=== PATIENT | male | born 1950 | race Caucasian/White ===

== ENCOUNTER 2016-11-30 00:58 | Emergency (ER) | payer OTHER ==
[2016-11-30] MEDS ORDERED: HYDROmorphone HCL CARPU-JECT 2 MG/1 ML DISP.SYRIN IVPUSH ONE (01:02)
[2016-11-30] MEDS ORDERED: SODIUM CHLORIDE 1,000 ML IV STA (01:02)
--- NOTE | 2016-11-30 01:09 | PDOC ---
History of Present Illness - General Chief Complaint: Pain, Acute Stated Complaint: ABDOMINAL PAIN SINCE 6 PM Time Seen by Provider: 11/30/16 01:01 History Source: Patient, Old Records Exam Limitations: No Limitations - History of Present Illness Initial Comments: 11/30/16 01:04 66 Y M DM, chronic neck pain on opiates. pte c/o abd pain. epigastric. radiating in band to back. vomited multiple time. no diarrhea. last bm yesterday but really hard. no fever. in ed, in nad but uncomfortable in pain. 11/30/16 02:40 ate buffalo wings and sausages yesterday. constipated for the last 5 days Past History - Past Medical History Allergies/Adverse Reactions: Allergies Allergy/AdvReac Type Severity Reaction Status Date / Time No Known Allergies Allergy Verified 11/30/16 01:00 Home Medications: Ambulatory Orders Glipizide/Metformin HCl [Glipizide-Metformin 5-500 mg] 1 each PO TID 04/24/14 Metoprolol Succinate [Toprol Xl] 25 mg PO DAILY 04/24/14 Oxycodone HCl [Roxicodone] 30 mg PO BID 04/24/14 Tamsulosin HCl [Flomax -] 0.4 mg PO BID 04/24/14 Aspirin [ASA -] 81 mg PO DAILY 05/25/16 Meclizine HCl [Antivert -] 25 mg PO TID PRN #20 tablet 05/25/16 [place]-3 Acid Ethyl Esters [Lovaza -] 1 gm PO DAILY 05/25/16 Diabetes: Yes HTN: Yes Hypercholesterolemia: Yes - Psycho/Social/Smoking Cessation Hx Anxiety: No Suicidal Ideation: No Smoking History: Current every day smoker Number of Cigarettes Smoked Daily: 3 Cigars Per Day: 7 'Breaking Loose' booklet given: 05/25/16 Hx Alcohol Use: No Drug/Substance Use Hx: No Substance Use Type: None Review of Systems - Review of Systems Able to Perform ROS?: Yes Is the patient limited Bulgarian proficient: No Constitutional: No: Symptoms Reported HEENTM: No: Symptoms Reported Respiratory: No: Symptoms reported Cardiac (ROS): No: Symptoms Reported ABD/GI: Yes: Symptoms Reported, See HPI : No: Symptoms Reported Musculoskeletal: No: Symptoms Reported Integumentary: No: Symptoms Reported Neurological: No: Symptoms reported All Other Systems: Reviewed and Negative *Physical Exam - Physical Exam General Appearance: Yes: Nourished, Appropriately Dressed. No: Apparent Distress HEENT: positive: Normal ENT Inspection Neck: positive: Supple Respiratory/Chest: positive: Lungs Clear, Normal Breath Sounds. negative: Respiratory Distress Cardiovascular: positive: Regular Rhythm, Regular Rate Gastrointestinal/Abdominal: positive: Normal Bowel Sounds, Tender (epigastric and b/l upper quads. no parada's. ), Soft. negative: Distended, Rebound Musculoskeletal: negative: CVA Tenderness Extremity: positive: Normal Capillary Refill, Normal Inspection, Normal Range of Motion Integumentary: positive: Normal Color. negative: Jaundice, Ecchymosis, Bruising Neurologic: positive: Fully Oriented, Alert, Normal Mood/Affect, Normal Response , Motor Strength 02/12 ED Treatment Course - LABORATORY CBC & Chemistry Diagram: 11/30/16 01:30 11/30/16 01:30 Progress Note - Progress Note Progress Note: H&P susp for pancreatitis pain control/ivf/labs/ reassess 2:40 am pain free. abd soft and non tender zofran and lactulose will see his pcp today *DC/Admit/Observation/Transfer Diagnosis at time of Disposition: Abdominal pain Qualifiers: Abdominal location: upper abdomen, unspecified Qualified Code(s): R10.10 - Upper abdominal pain, unspecified - Discharge Dispostion Disposition: HOME Condition at time of disposition: Improved - Referrals Referrals: Nicki Noonan MD [Primary Care Provider] - Call tomorrow - Patient Instructions Additional Instructions: TAKE MEDICATIONS PRESCRIBED PLENTY OF FLUIDS (WATER/GATORADE) BLAND DIET, ADVANCE TOLERATED EAT FREQUENT, SMALL MEALS THROUGHOUT THE DAY MAALOX, 30 ml 1/2 HOUR AFTER MEALS AND AT BED TIME RETURN IF FEVER, VOMITING, SEVERE PAIN CALL DR. NOONAN TODAY
[2016-11-30] MEDS ORDERED: HYDROmorphone HCL CARPU-JECT 2 MG/1 ML DISP.SYRIN ONE (01:10)
[2016-11-30 01:25] VITALS: TEMP 97.6; BMI 24.8
[2016-11-30 01:44] LABS: BASOPHIL 0.4 % (0-2.0); EOSINOPHIL 0.5 % (0-4.5); MCH 29.6 pg (25.7-33.7); MCHC 34.5 g/dl (32.0-35.9); MEAN CELL VOLUME 85.7 fl (80-96); MEAN PLT VOLUME 8.5 fl (7.5-11.1); NEUTROPHILS 76.9 % (42.8-82.8); PLATELET COUNT 111 K/MM3 (134-434); RDW 13.1 % (11.9-15.9); WHITE BLOOD COUNT 6.9 K/mm3 (4.0-10.0)
[2016-11-30 01:56] VITALS: BP 143/69; PULSE 83
[2016-11-30 02:06] LABS: ALBUMIN 3.9 g/dl (3.4-5.0); ANION GAP 15 (8-16); BILIRUBIN,TOTAL 0.9 mg/dL (0.2-1.0); CALCIUM 9.1 mg/dL (8.5-10.1); CO2 24 mmol/L (21-32); CREATININE 0.9 mg/dL (0.7-1.3); GLUCOSE,RANDOM 278 mg/dL (74-106); SGOT/AST 65 U/L (15-37); SGPT/ALT 110 U/L (12-78); TOT PROT 7.5 g/dl (6.4-8.2)
[2016-11-30 02:07] LABS: ALK PHOS 192 U/L (45-117)
[2016-11-30] MEDS ORDERED: ONDANSETRON 4 MG/2 ML VIAL IVPUSH ONE (02:11)
[2016-11-30] MEDS ORDERED: LACTULOSE 20 GM/30 ML UDC (FOR ORAL USE ONLY) PO ONE (02:11)
[2016-11-30] MEDS ORDERED: LACTULOSE 20 GM/30 ML UDC (FOR ORAL USE ONLY) ONE (02:12)
[2016-11-30] MEDS ORDERED: ONDANSETRON 4 MG/2 ML VIAL ONE (02:12)
== END 2016-11-30 02:46 | disposition home or self-care (01) ==
LOC: FER 00:58
PROC: 3E033NZ Introduction of Analgesics, Hypnotics, Sedatives into Peripheral Vein, Percutaneous Approach (ICD-10-PCS; principal; 2016-11-30)
PROC: 3E033GC Introduction of Other Therapeutic Substance into Peripheral Vein, Percutaneous Approach (ICD-10-PCS; 2016-11-30)
PROC: 3E0337Z Introduction of Electrolytic and Water Balance Substance into Peripheral Vein, Percutaneous Approach (ICD-10-PCS; 2016-11-30)
DX: R10.10 Upper abdominal pain, unspecified (principal); E11.9 Type 2 diabetes mellitus without complications; I10 Essential (primary) hypertension; E78.00 Pure hypercholesterolemia, unspecified; F17.210 Nicotine dependence, cigarettes, uncomplicated
CPT/HCPCS: 36415; 80053; 83690; 85025; 99281-25

== ENCOUNTER 2016-12-05 18:20 | Inpatient (IN) | payer OTHER ==
--- NOTE | 2016-12-05 18:26 | PDOC ---
History of Present Illness <Juan Gupta - Last Filed: 12/05/16 18:37> - General History Source: Patient, Old Records Exam Limitations: No Limitations - History of Present Illness Initial Comments: 12/05/16 18:50 The patient is a 66 year old male with past medical history of hypertension, hyperlipidemia, type 2 diabetes, cigarette smoking, chronic neck pain (on chronic opiates),who was seen on 11/30/16 for diffuse abdominal pain and constipation and now returns with same symptoms with additional complaints of dizziness, weakness, and high blood sugar (taken at home, in 300's). The patient was seen in the ED last Wednesday night, where he was given Lactulose and discharged home without any prescriptions. He reports taking an enema on Wednesday , and producing two small bowel movements since the prior visit (one on and one today) both which were nonbloody and non-melanous. He rates his pain 8/10 and reports feeling bloated. He also reports a loss of appetite, and denies nausea or vomiting since his prior visit. The patient denies any recent illness, fever, chills, cough, shortness of breath, cough, or chest pain. <Kathy Marks - Last Filed: 12/05/16 21:19> - General Chief Complaint: Lightheaded Stated Complaint: DIZZY,WEAK Time Seen by Provider: 12/05/16 18:22 Past History - Past Medical History Diabetes: Yes HTN: Yes Hypercholesterolemia: Yes - Psycho/Social/Smoking Cessation Hx Anxiety: No Suicidal Ideation: No Smoking History: Current every day smoker Have you smoked in the past 12 months: Yes Number of Cigarettes Smoked Daily: 3 Cigars Per Day: 7 'Breaking Loose' booklet given: 05/25/16 Hx Alcohol Use: No Drug/Substance Use Hx: No Substance Use Type: None <Juan Gupta - Last Filed: 12/05/16 18:37> <Kathy Marks - Last Filed: 12/05/16 21:19> - Past Medical History Allergies/Adverse Reactions: Allergies Allergy/AdvReac Type Severity Reaction Status Date / Time No Known Allergies Allergy Verified 12/05/16 18:21 Home Medications: Ambulatory Orders Glipizide/Metformin HCl [Glipizide-Metformin 5-500 mg] 1 each PO TID 04/24/14 Metoprolol Succinate [Toprol Xl] 25 mg PO DAILY 04/24/14 Oxycodone HCl [Roxicodone] 30 mg PO BID 04/24/14 Tamsulosin HCl [Flomax -] 0.4 mg PO BID 04/24/14 Aspirin [ASA -] 81 mg PO DAILY 05/25/16 Meclizine HCl [Antivert -] 25 mg PO TID PRN #20 tablet 05/25/16 [place]-3 Acid Ethyl Esters [Lovaza -] 1 gm PO DAILY 05/25/16 Review of Systems - Review of Systems Able to Perform ROS?: Yes Comments:: 12/05/16 18:50 CONSTITUTIONAL: Present: loss of appetite, weakness Absent: fever, chills, diaphoresis, malaise HEENT: Absent: rhinorrhea, nasal congestion, throat pain, throat swelling, difficulty swallowing, mouth swelling, ear pain, eye pain, visual Changes CARDIOVASCULAR: Absent: chest pain, syncope, palpitations, irregular heart rate, lightheadedness , peripheral edema RESPIRATORY: Absent: cough, shortness of breath, dyspnea with exertion, orthopnea, wheezing, stridor, hemoptysis GASTROINTESTINAL: Present: abdominal pain, distention Absent: nausea, vomiting, diarrhea, constipation, melena, hematochezia GENITOURINARY: Absent: dysuria, frequency, urgency, hesitancy, hematuria, flank pain, genital pain MUSCULOSKELETAL: Absent: myalgia, arthralgia, joint swelling SKIN: Absent: rash, itching, pallor HEMATOLOGIC/IMMUNOLOGIC: Absent: easy bleeding, easy bruising, lymphadenopathy, frequent infections ENDOCRINE: Absent: unexplained weight gain, unexplained weight loss, heat intolerance, cold intolerance NEUROLOGIC: Absent: headache, focal weakness or paresthesias, dizziness, unsteady gait, seizure, mental status changes, bladder or bowel incontinence PSYCHIATRIC: Absent: anxiety, depression, suicidal or homicidal ideation, hallucinations. All Other Systems: Reviewed and Negative <Kathy Marks - Last Filed: 12/05/16 21:19> *Physical Exam - Vital Signs Last Vital Signs Temp Pulse Resp BP Pulse Ox 98.2 F 83 20 150/80 96 12/05/16 18:21 12/05/16 18:21 12/05/16 18:21 12/05/16 18:21 12/05/16 18:21 - Physical Exam Comments: 12/05/16 18:53 GENERAL: Well developed, well nourished. Awake and alert. No acute distress. HEENT: Dry mucous membranes. Normocephalic, atraumatic. PERRLA, EOMI. No conjunctival pallor. Sclera are non-icteric. Oropharynx is clear. NECK: Supple. Full ROM. No JVD. Carotid pulses 2+ and symmetric, without bruits. No thyromegaly. No lymphadenopathy. CARDIOVASCULAR: Regular rate and rhythm. No murmurs, rubs, or gallops. Distal pulses are 2+ and symmetric. PULMONARY: No evidence of respiratory distress. Lungs clear to auscultation bilaterally. No wheezing, rales or rhonchi. ABDOMINAL: Mild tenderness upon deep palpation, mildly distended. No rebound or guarding. No organomegaly. Normoactive bowel sounds. MUSCULOSKELETAL Normal range of motion at all joints. No bony deformities or tenderness. No CVA tenderness. EXTREMITIES: No cyanosis. No clubbing. No edema. No calf tenderness. SKIN: Warm and dry. Normal capillary refill. No rashes. No jaundice. NEUROLOGICAL: Alert, awake, appropriate. Cranial nerves 2-12 intact. No deficits to light touch and temperature in face, upper extremities and lower extremities. No motor deficits in the in face, upper extremities and lower extremities. Normoreflexic in the upper and lower extremities. Normal speech. Toes are down-going bilaterally. Gait is normal without ataxia. PSYCHIATRIC: Cooperative. Good eye contact. Appropriate mood and affect. <Kathy Marks - Last Filed: 12/05/16 21:19> ED Treatment Course - LABORATORY CBC & Chemistry Diagram: 12/05/16 18:48 12/05/16 18:48 - RADIOLOGY Radiograph Interpretation: 12/05/16 21:18 EXAM: CT abdomen and pelvis with intravenous and oral contrast FINDINGS: There are multiple small stones within a moderately distended gallbladder with thickening of the gallbladder wall and pericholecystic edema compatible with acute cholecystitis Small amount of perihepatic ascites and small amount of ascites in the pelvis No loculated fluid collections or intra-abdominal free air There are fatty changes of liver with subtle contour nodularity concerning for cirrhosis. The spleen is enlarged measuring 15 cm in craniocaudal dimension. There are enlarged celiac axis, periportal and portacaval lymph nodes measuring up to 1.3 cm in short axis which are nonspecific and possibly reactive although malignancy cannot be excluded There is no bowel obstruction or distention Mild circumferential thickening of the terminal ileum and mild circumferential thickening throughout the colon predominantly sigmoid colon compatible with nonspecific ileocolitis Read by: Samuel Goldman MD <Kathy Marks - Last Filed: 12/05/16 21:19> Medical Decision Making - Medical Decision Making 12/05/16 18:37 The patient is well-appearing and in no acute distress He appears mildly volume deplete He has signs and symptoms potentially consistent with small bowel obstruction, likely partial Will obtain labs Will obtain CT of the abdomen and pelvis with oral and IV contrast to rule out partial small bowel obstruction Case discussed in detail with oncoming Emergency Physician including history, physical exam and ancillary studies. Oncoming Emergency Physician has assumed care for the patient and will complete the evaluation and treatment. <Juan Gupta - Last Filed: 12/05/16 18:37> *DC/Admit/Observation/Transfer <Juan Gupta - Last Filed: 12/05/16 18:37> - Attestations Scribe Attestion: 12/05/16 18:54 Documentation prepared by Kathy Marks, acting as medical education coordinator for Juan Gupta MD. <Kathy Marks - Last Filed: 12/05/16 21:19> Diagnosis at time of Disposition: Abdominal pain, Acute cholecystitis
[2016-12-05] MEDS ORDERED: SODIUM CHLORIDE 500 ML IV STA (18:27)
[2016-12-05 19:01] LABS: BASOPHIL 2.4 % (0-2.0); EOSINOPHIL 0.6 % (0-4.5); MCH 30.4 pg (25.7-33.7); MCHC 35.5 g/dl (32.0-35.9); MEAN CELL VOLUME 85.5 fl (80-96); MEAN PLT VOLUME 7.8 fl (7.5-11.1); NEUTROPHILS 76.7 % (42.8-82.8); PLATELET COUNT 204 K/MM3 (134-434); RDW 11.8 % (11.9-15.9); WHITE BLOOD COUNT 15.4 K/mm3 (4.0-10.0)
[2016-12-05 19:17] LABS: ALK PHOS 130 U/L (32-92); ANION GAP 10 (8-16); CALCIUM 8.5 mg/dl (8.4-10.2); CO2 26 mmol/L (22-28); CREATININE 0.8 mg/dl (0.6-1.3); GLUCOSE,RANDOM 175 mg/dl (74-106); SGOT/AST 46 U/L (10-42); SGPT/ALT 45 U/L (10-40); TOT PROT 6.4 g/dl (6.4-8.3)
[2016-12-05] MEDS: SODIUM CHLORIDE 1,000 ML IV SCH (19:38)
--- NOTE | 2016-12-05 19:38 | PDOC ---
*Physical Exam - Vital Signs Last Vital Signs Temp Pulse Resp BP Pulse Ox 98.2 F 83 20 150/80 96 12/05/16 18:21 12/05/16 18:21 12/05/16 18:21 12/05/16 18:21 12/05/16 18:21 12/05/16 21:09 Fish And Wildlife Warden: ([email or web address]) Begin of Report Content Referring Physician: Juan Gupta Patient Name: Ye Rodríguez THIS IS A PRELIMINARY REPORT FROM [facility] EXAM: CT abdomen and pelvis with intravenous and oral contrast IMAGES: [id number] EXAM DATE AND TIME: 2016-12-05 19:44:19.0 REASON FOR EXAM: Abdominal pain COMPARISON: None. FINDINGS: There are multiple small stones within a moderately distended gallbladder with thickening of the gallbladder wall and pericholecystic edema compatible with acute cholecystitis Small amount of perihepatic ascites and small amount of ascites in the pelvis No loculated fluid collections or intra-abdominal free air There are fatty changes of liver with subtle contour nodularity concerning for cirrhosis. The spleen is enlarged measuring 15 cm in craniocaudal dimension. There are enlarged celiac axis, periportal and portacaval lymph nodes measuring up to 1.3 cm in short axis which are nonspecific and possibly reactive although malignancy cannot be excluded There is no bowel obstruction or distention Mild circumferential thickening of the terminal ileum and mild circumferential thickening throughout the colon predominantly sigmoid colon compatible with nonspecific ileocolitis THIS DOCUMENT HAS BEEN ELECTRONICALLY SIGNED Samuel Goldman MD 12/05/2016 21:01 SARAH Rolle Please call Imaging Design Editor [phone] with questions. <Reta Carrillo I - Last Filed: 12/05/16 21:20> - Vital Signs Last Vital Signs Temp Pulse Resp BP Pulse Ox 98.2 F 83 20 150/80 96 12/05/16 18:21 12/05/16 18:21 12/05/16 18:21 12/05/16 18:21 12/05/16 18:21 <Kathy Marks - Last Filed: 12/05/16 21:25> ED Treatment Course - LABORATORY CBC & Chemistry Diagram: 12/05/16 18:48 12/05/16 18:48 - ADDITIONAL ORDERS Additional order review: Laboratory Results 12/05/16 18:48 Sodium 131 L Potassium 3.7 Chloride 95 L Carbon Dioxide 26 Anion Gap 10 BUN 14 Creatinine 0.8 Creat Clearance w eGFR > 60 Random Glucose 175 H D Calcium 8.5 Total Bilirubin 1.0 D AST 46 H ALT 45 H D Alkaline Phosphatase 130 H Total Protein 6.4 Albumin 3.0 L D Lipase 34 12/05/16 18:48 RBC 5.27 MCV 85.5 MCHC 35.5 RDW 11.8 L MPV 7.8 Neutrophils % 76.7 Lymphocytes % 13.9 Monocytes % 6.4 Eosinophils % 0.6 Basophils % 2.4 H - Medications Given in the ED: ED Medications Discontinued Medications Generic Name Dose Route Start Last Admin Trade Name Freq PRN Reason Stop Dose Admin Sodium Chloride 500 mls @ 500 mls/hr 12/05/16 18:27 12/05/16 18:48 Normal Saline - IV 12/05/16 19:26 500 mls/hr ASDIR STA Administration <Reta Carrillo I - Last Filed: 12/05/16 21:20> - LABORATORY CBC & Chemistry Diagram: 12/05/16 18:48 12/05/16 18:48 - ADDITIONAL ORDERS Additional order review: Laboratory Results 12/05/16 12/05/16 12/05/16 19:50 18:48 18:48 Sodium 131 L Potassium 3.7 Chloride 95 L Carbon Dioxide 26 Anion Gap 10 BUN 14 Creatinine 0.8 Creat Clearance w eGFR > 60 Random Glucose 175 H D Lactic Acid 1.642 Calcium 8.5 Total Bilirubin 1.0 D AST 46 H ALT 45 H D Alkaline Phosphatase 130 H C-Reactive Protein Total Protein 6.4 Albumin 3.0 L D Lipase 34 Urine Color Yellow Urine Appearance Clear Urine pH 7.0 Ur Specific [place] 1.010 Urine Protein Negative Urine Glucose (UA) Trace Urine Ketones Negative Urine Blood Negative Urine Nitrite Negative Urine Bilirubin Negative Urine Urobilinogen 1.0 e.u/dl Ur Leukocyte Esterase Negative 12/05/16 18:48 Sodium Potassium Chloride Carbon Dioxide Anion Gap BUN Creatinine Creat Clearance w eGFR Random Glucose Lactic Acid Calcium Total Bilirubin AST ALT Alkaline Phosphatase C-Reactive Protein 11.7 H Total Protein Albumin Lipase Urine Color Urine Appearance Urine pH Ur Specific [place] Urine Protein Urine Glucose (UA) Urine Ketones Urine Blood Urine Nitrite Urine Bilirubin Urine Urobilinogen Ur Leukocyte Esterase 12/05/16 18:48 RBC 5.27 MCV 85.5 MCHC 35.5 RDW 11.8 L MPV 7.8 Neutrophils % 76.7 Lymphocytes % 13.9 Monocytes % 6.4 Eosinophils % 0.6 Basophils % 2.4 H - Medications Given in the ED: ED Medications Discontinued Medications Generic Name Dose Route Start Last Admin Trade Name Pallavi PRN Reason Stop Dose Admin Sodium Chloride 500 mls @ 500 mls/hr 12/05/16 18:27 12/05/16 18:48 Normal Saline - IV 12/05/16 19:26 500 mls/hr ASDIR STA Administration <Kathy Marks - Last Filed: 12/05/16 21:25> Progress Note - Progress Note Progress Note: Care of the patient was transferred to nd from Dr. Gupta at 7 PM. Patient is a 66-year-old male who has opioid-induced chronic constipation. Patient was here 5 days ago with abdominal pain and constipation. Patient has only had 2 very small bowel movements in the last 5 days and now comes back with more pain and some abdominal distention. Patient is undergoing a workup for mechanical bowel obstruction secondary to his severe constipation. Patient has a CT scan pending. Patient's lab work is also pending. 21:10 CAT scan shows acute cholecystitis Patient has a white count but no left shift. Patient's liver enzymes are elevated including his alkaline phosphatase Patient will be admitted to an inpatient bed for acute cholecystitis and removal of his gallbladder. Admission discussed with Dr. Khadijah Thrasher who will admit patient to an inpatient bed. Patient given Zosyn. <Reta Carrillo I - Last Filed: 12/05/16 21:20> Medical Decision Making - Medical Decision Making 12/05/16 21:24 Phone call placed to Dr. Khadijah Thrasher at 21:15. Call was returned at 21:19 and case was discussed. Phone call placed to [facility] at 21:24 and call was connected immediately. Case was discussed. <Kathy Marks - Last Filed: 12/05/16 21:25> *DC/Admit/Observation/Transfer - Discharge Dispostion Admit: Yes <Reta Carrillo I - Last Filed: 12/05/16 21:20> - Attestations Scribe Attestion: 12/05/16 21:25 Documentation prepared by Kathy Marks, acting as medical apparatus model maker for Reta Carrillo MD. <Kathy Marks - Last Filed: 12/05/16 21:25> Diagnosis at time of Disposition: Abdominal pain, Acute cholecystitis
[2016-12-05 20:08] LABS: URINE APPEARANCE Clear; URINE BILIRUBIN Negative (NEGATIVE); URINE BLOOD Negative (NEGATIVE); URINE COLOR YELLOW; URINE GLUCOSE (UA) Trace (NEGATIVE); URINE KETONE Negative (NEGATIVE); URINE LEUK ESTERASE Negative (NEGATIVE); URINE NITRITE Negative (NEGATIVE); URINE PROTEIN Negative (NEGATIVE); URINE UROBILINOGEN 1.0 E.U/dl (0.2-1.0)
[2016-12-05] MEDS ORDERED: ACETAMINOPHEN 1000 MG/100 ML VIAL (NON FORMULARY) IVPB ONE (21:00)
[2016-12-05] MEDS ORDERED: ACETAMINOPHEN INJECTION 100 ML IVPB ONE (21:15)
[2016-12-05] MEDS ORDERED: PIPERACILLIN/TAZOB 3.375 GM 3.375 GM in DEXTROSE 5%-WATER - 50 ML IVPB ONE (21:20)
[2016-12-05] MEDS ORDERED: PIPERACILLIN/TAZOBACTAM 3.375 GM VIAL IVPB ONE (21:25)
[2016-12-05 23:44] VITALS: BMI 23.6
[2016-12-06] MEDS: D5-1/2NS+20 MEQ KCL - 1,000 ML IV SCH (00:21)
[2016-12-06 07:51] LABS: ALBUMIN 2.8 g/dl (3.5-5.0); ALK PHOS 121 U/L (32-92); ANION GAP 8 (8-16); BILIRUBIN,TOTAL 1.3 mg/dl (0.2-1.0); CALCIUM 8.7 mg/dl (8.4-10.2); CO2 28 mmol/L (22-28); CREATININE 0.8 mg/dl (0.6-1.3); GLUCOSE,RANDOM 252 mg/dl (74-106); SGOT/AST 42 U/L (10-42); SGPT/ALT 43 U/L (10-40); TOT PROT 6.1 g/dl (6.4-8.3)
[2016-12-06 08:07] LABS: MCH 29.8 pg (25.7-33.7); MCHC 34.3 g/dl (32.0-35.9); MEAN PLT VOLUME 8.4 fl (7.5-11.1); PLATELET COUNT 187 K/MM3 (134-434); WHITE BLOOD COUNT 13.4 K/mm3 (4.0-10.0)
--- NOTE | 2016-12-06 08:54 | CONSULT ---
Consult Consult Specialty:: surgery Reason for Consultation:: abd pain - History of Present Illness Chief Complaint: abd pain History of Present Illness: pt is a 66M with 1 week of intermittent/severe diffuse abd pain. He came to ER a week ago and was sent home. His pain returned and worsened and he came back to ER yesterday. Some chills. Workup in ED includes CT/US showing cholecystitis. Patients ultrasound suggests some cirrhosis. patient denies drinking hx. his GI was dr. jonas bush. denies hx of hepatitis. says he has fatty liver. also significant is patient takes oxycodone 30mg bid for chronic neck pain. he has stopped taking it for past week though. currently has no pain in abd. wbc slightly improved from 15 to 13. tbili increased from 1->1.3. min/mild lft elevation. - History Source History Provided By: Patient Limitations to Obtaining History: No Limitations - Past Medical History Additional Medical History: htn, dm2, hyperlipidemia, FRANCES? - Past Surgical History Additional Surgical History: neck surgery, foot surgery - Alcohol/Substance Use Hx Alcohol Use: No - Smoking History Smoking history: Current every day smoker Have you smoked in the past 12 months: Yes Aproximately how many cigarettes per day: 3 If you are a former smoker, when did you quit?: 10/2016 Home Medications - Allergies Allergies/Adverse Reactions: Allergies Allergy/AdvReac Type Severity Reaction Status Date / Time No Known Allergies Allergy Verified 12/05/16 18:21 - Home Medications Home Medications: Ambulatory Orders Glipizide/Metformin HCl [Glipizide-Metformin 5-500 mg] 1 each PO TID 04/24/14 Metoprolol Succinate [Toprol Xl] 25 mg PO DAILY 04/24/14 Oxycodone HCl [Roxicodone] 30 mg PO BID 04/24/14 Tamsulosin HCl [Flomax -] 0.4 mg PO BID 04/24/14 Aspirin [ASA -] 81 mg PO DAILY 05/25/16 Meclizine HCl [Antivert -] 25 mg PO TID PRN #20 tablet 05/25/16 [place]-3 Acid Ethyl Esters [Lovaza -] 1 gm PO DAILY 05/25/16 Review of Systems - Review of Systems Constitutional: reports: Chills. denies: Fever Eyes: denies: Blind Spots, Blurred Vision HENT: denies: Difficult Swallowing, Ear Discharge Neck: denies: Decreased ROM, Swollen Glands Cardiovascular: denies: Chest Pain, Edema Respiratory: denies: Cough, Exercise Intolerance Gastrointestinal: reports: Abdominal Pain, Constipation Genitourinary: denies: Burning, Discharge Breasts: denies: Breast Implants, Pain Musculoskeletal: denies: Back Pain, Crepitus Integumentary: denies: Blister, Bruising Neurological: reports: Dizziness. denies: Headache Endocrine: denies: Excessive Sweating, Flushing Hematology/Lymphatic: denies: Easily Bruised, Excessive Bleeding Psychiatric: denies: Altered Sleep Pattern, Anxiety Physical Exam Vital Signs: Vital Signs Temperature 98.1 F 12/06/16 05:54 Pulse Rate 72 12/06/16 05:54 Respiratory Rate 20 12/06/16 05:54 Blood Pressure 125/76 12/06/16 05:54 O2 Sat by Pulse Oximetry (%) 100 12/06/16 05:54 Constitutional: Yes: No Distress, Calm Eyes: Yes: Conjunctiva Clear, EOM Intact HENT: Yes: Atraumatic, Normocephalic Neck: Yes: Supple, Trachea Midline Cardiovascular: Yes: Regular Rate and Rhythm Respiratory: Yes: Regular Gastrointestinal: Yes: Soft, Tenderness (+guarding in RUQ. palpable mass in RUQ ). No: Distention ...Rectal Exam: Yes: Deferred Renal/: No: CVA Tenderness - Left, CVA Tenderness - Right Breast(s): No: Dimpling, Mass Musculoskeletal: No: Joint Stiffness, Joint Swelling Extremities: No: Calf Tenderness, Erythema Integumentary: No: Erythema, Rash Neurological: Yes: Alert, Oriented Psychiatric: Yes: Alert, Oriented Labs: CBC, BMP 12/06/16 06:30 12/06/16 06:30 Imaging - Results Cat Scan: Report Reviewed Ultrasound: Report Reviewed Problem List - Problems (1) Acute cholecystitis Assessment/Plan: patient with acute on chronic cholecystitis in patient with hx of cirrhosis ( nonalcoholic), DM2, chronic opiod usage counseled pt at length that his is much harder operation than most with increase blood loss and higher rate of conversion to open procedure than most gallbladders. recommended transfer to [facility] for surgery tomorrow (wednesday) can have clear liquid diet today cont abx type and screen discussed perc yemi with patient but he wants to pursue surgical option. Code(s): K81.0 - ACUTE CHOLECYSTITIS
[2016-12-06] MEDS: LEVOFLOXACIN 500 MG IVPB 100 ML IVPB SCH (10:38)
[2016-12-06] MEDS ORDERED: METOPROLOL SUCCINATE 25 MG TAB.SR.24H (FP) ONE (10:46)
[2016-12-06] MEDS: METOPROLOL SUCCINATE 50 MG TAB.SR.24H (FP) PO SCH (10:49)
--- NOTE | 2016-12-06 11:09 | HP ---
Admitting History and Physical - Primary Care Physician PCP: Nicki Noonan - Admission Chief Complaint: abd pain History of Present Illness: The patient is a 66 year old male with past medical history of hypertension, hyperlipidemia, type 2 diabetes, cigarette smoking, chronic neck pain (on chronic opiates),who was seen on 11/30/16 in er for diffuse abdominal pain and constipation and now returns with same symptoms with additional complaints of dizziness, weakness, and high blood sugar (taken at home, in 300's). The patient was seen in the ED last Wednesday night, where he was given Lactulose and discharged home without any prescriptions. He reports taking an enema on Wednesday , and producing two small bowel movements since the prior visit (one on and one today) both which were nonbloody and non-melanous. He rates his pain 8/10 and reports feeling bloated. He also reports a loss of appetite, and denies nausea or vomiting since his prior visit. The patient denies any recent illness, fever, chills, cough, shortness of breath, cough, or chest pain. Ct scan showed acute cholecystitis started on abx / fluids case was discussed with er physician last night pt seen today feels much better surgery consult noted / appreciated scheduled for or tomorrow History Source: Patient Limitations to Obtaining History: No Limitations - Past Medical History Cardiovascular: Yes: HTN Endocrine: Yes: Diabetes Mellitus - Smoking History Smoking history: Current every day smoker Have you smoked in the past 12 months: Yes Aproximately how many cigarettes per day: 3 If you are a former smoker, when did you quit?: 10/2016 - Alcohol/Substance Use Hx Alcohol Use: No Home Medications - Allergies Allergies/Adverse Reactions: Allergies Allergy/AdvReac Type Severity Reaction Status Date / Time No Known Allergies Allergy Verified 12/05/16 18:21 - Home Medications Home Medications: Ambulatory Orders Glipizide/Metformin HCl [Glipizide-Metformin 5-500 mg] 1 each PO TID 04/24/14 Metoprolol Succinate [Toprol Xl] 25 mg PO DAILY 04/24/14 Oxycodone HCl [Roxicodone] 30 mg PO BID 04/24/14 Tamsulosin HCl [Flomax -] 0.4 mg PO BID 04/24/14 Aspirin [ASA -] 81 mg PO DAILY 05/25/16 Meclizine HCl [Antivert -] 25 mg PO TID PRN #20 tablet 05/25/16 [place]-3 Acid Ethyl Esters [Lovaza -] 1 gm PO DAILY 05/25/16 Family Disease History - Family Disease History Family History: Unremarkable Review of Systems Unable to obtain ROS, reason: see [place] Physical Examination Vital Signs: Vital Signs Temperature 98.1 F 12/06/16 05:54 Pulse Rate 72 12/06/16 05:54 Respiratory Rate 20 12/06/16 05:54 Blood Pressure 125/76 12/06/16 05:54 O2 Sat by Pulse Oximetry (%) 100 12/06/16 05:54 Constitutional: Yes: No Distress, Calm Eyes: Yes: Conjunctiva Clear Neck: Yes: Supple Cardiovascular: Yes: Regular Rate and Rhythm Respiratory: Yes: CTA Bilaterally Gastrointestinal: Yes: Soft, Tenderness (rue---no r/r) Edema: No Labs: CBC, BMP 12/06/16 06:30 12/06/16 06:30 Imaging - Results Cat Scan: Report Reviewed Problem List - Problems (1) Acute cholecystitis Code(s): K81.0 - ACUTE CHOLECYSTITIS (2) Diabetes Code(s): E11.9 - TYPE 2 DIABETES MELLITUS WITHOUT COMPLICATIONS Assessment/Plan fluids abx surgery on case cxr ekg anticipate surgery tomorrow discussed with pt will discuss with surgeon anticipate transfer to [place] later today
[2016-12-06] MEDS: morphine CARPU-JECT 2 MG/1 ML DISP.SYRIN IVPUSH PRN (19:52)
[2016-12-06] MEDS: TAMSULOSIN HCL 0.4 MG CAP.ER.24H (FP) PO SCH (21:12)
[2016-12-07] MEDS: D5-1/2NS+20 MEQ KCL - 1,000 ML IV SCH (05:43)
[2016-12-07] MEDS: SODIUM CHLORIDE 1,000 ML IV SCH ×2 (05:47→21:48)
[2016-12-07 08:07] LABS: WHITE BLOOD COUNT 7.3 K/mm3 (4.0-10.0)
[2016-12-07 08:08] LABS: ALBUMIN 2.4 g/dl (3.5-5.0); ALK PHOS 98 U/L (32-92); ANION GAP 8 (8-16); BILIRUBIN,TOTAL 0.9 mg/dl (0.2-1.0); CO2 23 mmol/L (22-28); CREATININE 0.7 mg/dl (0.6-1.3); GLUCOSE,RANDOM 149 mg/dl (74-106); MCH 29.7 pg (25.7-33.7); MCHC 34.9 g/dl (32.0-35.9); MEAN CELL VOLUME 85.1 fl (80-96); MEAN PLT VOLUME 8.7 fl (7.5-11.1); PLATELET COUNT 144 K/MM3 (134-434); RDW 11.5 % (11.9-15.9); SGOT/AST 35 U/L (10-42); SGPT/ALT 34 U/L (10-40); TOT PROT 5.2 g/dl (6.4-8.3)
[2016-12-07 08:09] LABS: BASOPHIL 0.1 % (0-2.0); EOSINOPHIL 1.1 % (0-4.5)
--- NOTE | 2016-12-07 08:14 | PN ---
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 [place] Denies cp/ sob denies abd pain Vital Signs Temp 98.8 F 12/07/16 06:24 Pulse 73 12/07/16 06:24 Resp 18 12/07/16 06:24 BP 126/70 12/07/16 06:24 Pulse Ox 95 12/07/16 06:24 Intake & Output 12/06/16 12/06/16 12/07/16 11:59 23:59 11:59 Intake Total 700 1050 1000 Balance 700 1050 1000 Weight 146 lb 145 lb Intake: IV 196 495 8862 Normal Saline - 1,000 ml 500 1000 @ 125 mls/hr IV ASDIR [facility] Rx#:[id number] D5-1/2Ns+20 Meq KCl - 1, 700 000 ml @ 100 mls/hr IV ASDIR [facility] Rx#:[id number] Oral 550 Other: Voiding Method Toilet Toilet # Unmeasured Voids Void 1 2 Weight Measurement Method Standing Scale Standing Scale Active Medications Sodium Chloride (Normal Saline -) 1,000 mls @ 125 mls/hr IV ASDIR [facility] Last Admin: 12/07/16 05:47 Dose: 125 mls/hr Potassium Chloride/Dextrose/Sod Cl (D5-1/2ns+20 Meq Kcl -) 1,000 mls @ 100 mls/ hr IV ASDIR [facility] Last Admin: 12/07/16 05:43 Dose: Not Given Levofloxacin (Levaquin 500 Mg Premixed Ivpb -) 100 mls @ 100 mls/hr IVPB DAILY [facility] Last Admin: 12/06/16 10:38 Dose: 100 mls/hr Metoprolol Succinate (Toprol Xl -) 25 mg PO DAILY [facility] Last Admin: 12/06/16 10:49 Dose: 25 mg Morphine Sulfate (Morphine Injection -) 2 mg IVPUSH Q6H PRN PRN Reason: PAIN Last Admin: 12/06/16 19:52 Dose: 2 mg Tamsulosin HCl (Flomax -) 0.4 mg PO BID [facility] Last Admin: 12/06/16 21:12 Dose: 0.4 mg Today labs - pending cxr -ok -official report pending Ekg- nsr @ 72 bpm - no acute changes Physical Examination Constitutional: Yes: No Distress, Calm Eyes: Yes: Conjunctiva Clear Neck: Yes: Supple Cardiovascular: Yes: Regular Rate and Rhythm Respiratory: Yes: CTA Bilaterally Gastrointestinal: Yes: Soft,mild tenderness ruq Edema: No Neuro - ao x 3 Imaging - Results Cat Scan: Report Reviewed Problem List - Problems (1) Acute cholecystitis Code(s): K81.0 - ACUTE CHOLECYSTITIS (2) Diabetes Code(s): E11.9 - TYPE 2 DIABETES MELLITUS WITHOUT COMPLICATIONS Assessment/Plan fluids abx npo anticipate surgery today discussed with pt medically cleared for surgery discussed with nursing staff also will follow Problem List - Problems (1) Acute cholecystitis Code(s): K81.0 - ACUTE CHOLECYSTITIS (2) Diabetes Code(s): E11.9 - TYPE 2 DIABETES MELLITUS WITHOUT COMPLICATIONS
[2016-12-07 09:07] LABS: INR 1.49 (0.82-1.09); PROTHROMBIN TIME (PATIENT) 16.6 SEC (10.2-13.0)
[2016-12-07] MEDS: TAMSULOSIN HCL 0.4 MG CAP.ER.24H (FP) PO SCH ×2 (09:22→21:48)
[2016-12-07] MEDS: METOPROLOL SUCCINATE 50 MG TAB.SR.24H (FP) PO SCH (09:22)
[2016-12-07] MEDS: LEVOFLOXACIN 500 MG IVPB 100 ML IVPB SCH (09:24)
[2016-12-07] MEDS ORDERED: METOPROLOL SUCCINATE 25 MG TAB.SR.24H (FP) PO SCH (10:00)
--- NOTE | 2016-12-07 11:54 | EKG ---
Test Reason : Blood Pressure : / mmHG Vent. Rate : 072 BPM Atrial Rate : 072 BPM P-R Int : 160 ms QRS Dur : 102 ms QT Int : 436 ms P-R-T Axes : 036 096 019 degrees QTc Int : 477 ms NORMAL SINUS RHYTHM RIGHTWARD AXIS BORDERLINE ECG NO PREVIOUS ECGS AVAILABLE Confirmed by MAYA YANES MD ([id number]) on 12/07/2016 11:53:53 AM Referred By: KEVIN DONOVAN Confirmed By:MAYA YANES MD
[2016-12-07] MEDS ORDERED: PROPOFOL 20 ML ONE (17:05)
[2016-12-07] MEDS ORDERED: ROCURONIUM BROMIDE 50 MG/5 ML VIAL ONE (17:06)
[2016-12-07] MEDS ORDERED: MIDAZOLAM HCL 2 MG/2 ML SINGLE DOSE VIAL ONE (18:08)
[2016-12-07] MEDS ORDERED: PROMETHAZINE HCL 25 MG/1 ML VIAL IVPUSH PRN (18:16)
[2016-12-07] MEDS ORDERED: ONDANSETRON 4 MG/2 ML VIAL IVPUSH PRN (18:16)
[2016-12-07] MEDS ORDERED: BUPIVACAINE HCL/PF 0.5% (5MG/ML) 10 ML VIAL ONE ×2 (18:17→18:22)
[2016-12-07] MEDS ORDERED: LACTATED RINGERS SOLUTION 1,000 ML IV SCH (18:30)
[2016-12-07] MEDS ORDERED: NEOSTIGMINE METHYLSULFATE 0.5 MG/ML - 10 ML MDV ONE (19:09)
[2016-12-07] MEDS ORDERED: BUPIVACAINE HCL/PF 0.5% (5MG/ML) 10 ML VIAL IJ ONE (19:25)
--- NOTE | 2016-12-07 19:49 | OP ---
Operative Note - Note: Operative Date: 12/07/16 Pre-Operative Diagnosis: acute on chronic cholecystitis. Operation: diagnostic laparoscopy, aborted cholecystectomy Findings: liver appeared to be severely cirrhotic. some hypervascularity of small intestine. Surgeon: Kaden Flores Fitter Type Bar And Segment: Pratima Nassar Anesthesia: General Estimated Blood Loss (mls): 2 Operative Report Dictated: Yes
[2016-12-07] MEDS: morphine CARPU-JECT 2 MG/1 ML DISP.SYRIN IVPUSH PRN (23:05)
[2016-12-08] MEDS: D5-1/2NS+20 MEQ KCL - 1,000 ML IV SCH (00:28)
[2016-12-08 06:26] VITALS: BP 93/49; PULSE 60; TEMP 98.9
--- NOTE | 2016-12-08 08:17 | DS ---
Physical Examination Vital Signs: Vital Signs Temperature 98.9 F 12/08/16 06:00 Pulse Rate 60 12/08/16 06:00 Respiratory Rate 18 12/08/16 06:00 Blood Pressure 93/49 12/08/16 06:00 O2 Sat by Pulse Oximetry (%) 99 12/08/16 06:00 Labs: CBC, BMP 12/07/16 07:20 12/07/16 07:20 Discharge Summary Reason For Visit: ACUTE CHOLECYSTITIS Current Active Problems Abdominal pain (Acute) Acute cholecystitis (Acute) Diabetes (Acute) - Home Medications Comprehensive Discharge Medication List: Ambulatory Orders Glipizide/Metformin HCl [Glipizide-Metformin 5-500 mg] 1 each PO TID 04/24/14 Metoprolol Succinate [Toprol Xl] 25 mg PO DAILY 04/24/14 Oxycodone HCl [Roxicodone] 30 mg PO BID 04/24/14 Tamsulosin HCl [Flomax -] 0.4 mg PO BID 04/24/14 Aspirin [ASA -] 81 mg PO DAILY 05/25/16 [place]-3 Acid Ethyl Esters [Lovaza -] 1 gm PO DAILY 05/25/16 Levofloxacin [Levaquin] 500 mg PO DAILY #6 tablet 12/08/16
[2016-12-08 08:20] LABS: INR 1.58 (0.82-1.09); PROTHROMBIN TIME (PATIENT) 17.5 SEC (10.2-13.0)
[2016-12-08] MEDS: METOPROLOL SUCCINATE 50 MG TAB.SR.24H (FP) PO SCH (09:18)
[2016-12-08] MEDS: TAMSULOSIN HCL 0.4 MG CAP.ER.24H (FP) PO SCH (09:18)
[2016-12-08] MEDS: LEVOFLOXACIN 500 MG IVPB 100 ML IVPB SCH (09:18)
--- NOTE | 2016-12-08 10:38 | OP ---
DATE OF OPERATION: 12/07/2016 PROCEDURE: Diagnostic laparoscopy. It was actually an attempted cholecystectomy, but this was aborted. PREOPERATIVE DIAGNOSIS: Acute cholecystitis. POSTOPERATIVE DIAGNOSIS: Cirrhosis with acute cholecystitis. SURGEON: Martell Flores MD TRAVELING NURSE: OSMAN Boyd ANESTHESIA: General endotracheal anesthesia. BLOOD LOSS: Minimal. OPERATIVE INDICATIONS: Cirrhosis with some ascites. OPERATIVE NOTE IN DETAIL: Patient was brought to the operating room after confirming name, date of , and medical record number. She was placed in supine position, and SCDs for DVT prophylaxis. He received appropriate perioperative antibiotics. He was then induced and intubated by the anesthesiologist. He was then prepped and draped in the usual sterile fashion. A time-out was then performed. I made a marking with the marker 2 fingerbreadths below his right subcostal margin just in case we had to do an open procedure. At this point, I then made a 1-inch supraumbilical incision and then bluntly dissected down to the fascia. I went through the fascia with electrocautery and then lifted up his abdomen anteriorly and then continued to go through the fascia with the electrocautery until I got to the peritoneum. At this point, I then grabbed the posterior sheath/peritoneum, lifted it anteriorly and then cut it, thus entering the abdomen. I performed a finger sweep to ensure no adhesions, and then, I placed a couple of stay sutures of 0 Vicryl to secure a Fadumo trocar. At this point, I insufflated the abdomen to a pressure of 15 mmHg. Then, the patient was placed in reverse Trendelenburg position. It was immediately noted that the liver was severely cirrhotic in appearance. The omentum was caked and highly vascularized and stuck to the gallbladder and liver. There appeared to be some increased vascularity of the small intestine, and there was some minimal to mild ascites in the right upper quadrant. At this point, given the appearance of the liver, which was worse than I anticipated, the decision was made to abort the operation because even with this type of cirrhosis, I was concerned of high blood transfusion requirements as well as a possible mortality rate. I then discussed this with the family, and the decision will be made to continue the patient on antibiotics and pain medication, and he will be evaluated by liver surgeon who I spoke to at a tertiary medical center or a physician who the primary medical doctor recommends. At this point, we then closed the fascia with a [id number] 0 Vicryl sutures x3, and then, we tied the stay sutures together, and then, the skin and subcutaneous tissues were closed with 4-0 Monocryl. MARTELL FLORES M.D. THOMAS/[id number]
--- NOTE | 2016-12-16 16:14 | SURG ---
Surgery Bow Repairer Custom Note Bow Repairer Custom: Pratima Nassar PA-C Date of Service: 12/07/16 Diagnosis: acute on chronic cholecystitis Procedure: diagnostic laparoscopy, aborted cholecystectomy I was present for the entirety of the operative procedure. For further detail, please refer to operative report. Visit type - Case Type Case Type: ED Admission
== END 2016-12-08 11:22 | disposition home or self-care (01) | DRG 200 ==
LOC: FER 18:20 → FM/S 22:05
PROVIDERS: ADMIT Internal Medicine; ATTEND Internal Medicine
PROC: 0FJ44ZZ Inspection of Gallbladder, Percutaneous Endoscopic Approach (ICD-10-PCS; principal; 2016-12-07 19:00)
DX: K81.0 Acute cholecystitis (principal); F11.20 Opioid dependence, uncomplicated; K74.69 Other cirrhosis of liver; R18.8 Other ascites; I10 Essential (primary) hypertension; E11.9 Type 2 diabetes mellitus without complications; M54.2 Cervicalgia; F17.210 Nicotine dependence, cigarettes, uncomplicated; E78.5 Hyperlipidemia, unspecified; Z53.8 Procedure and treatment not carried out for other reasons
CPT/HCPCS: 36415; 71010-TC; 74177-TC; 80053; 81003; 83605; 83690; 85025; 85027; 85610; 86140; 86850; 86900; 86901; 93005; 94760; 99284-25

== ENCOUNTER 2018-12-12 07:13 | Day surgery (SDC) | payer OTHER ==
[2018-12-09 13:27] VITALS: BMI 23.8
[2018-12-12] MEDS ORDERED: oxyCODONE HCL 5 MG TABLET PO PRN ×2 (09:10)
[2018-12-12] MEDS ORDERED: ONDANSETRON 4 MG/2 ML VIAL IVPUSH PRN (09:10)
[2018-12-12] MEDS ORDERED: LACTATED RINGERS SOLUTION 1,000 ML IV SCH (09:15)
[2018-12-12] MEDS ORDERED: PROPOFOL 20 ML ONE ×2 (09:53→10:00)
[2018-12-12] MEDS ORDERED: MIDAZOLAM HCL 2 MG/2 ML SINGLE DOSE VIAL ONE (09:53)
--- NOTE | 2018-12-12 10:42 | OP ---
Operative Note - Note: Operative Date: 12/12/18 Pre-Operative Diagnosis: bladder tumor Operation: transurethral resection and vaporization of bladder tumor Findings: bladder tumor involving 5 cm x 5 cm area of bladder base Post-Operative Diagnosis: Same as Pre-op Anesthesia: General Specimens Removed: bladder tumor Drains & Tubes with Location: 20 sammarinese white to straight drainage Operative Report Dictated: Yes
[2018-12-12] MEDS ORDERED: oxyCODONE HCL 10 MG SUSTAINED ACTING TABLET ONE (12:28)
[2018-12-12 13:03] VITALS: TEMP 98
[2018-12-12 14:09] VITALS: BP 130/70
[2018-12-12 14:14] VITALS: PULSE 58
--- NOTE | 2018-12-12 20:21 | OP ---
DATE OF OPERATION: 12/12/2018 PREOPERATIVE DIAGNOSIS: Bladder tumor. POSTOPERATIVE DIAGNOSIS: Bladder tumor. PROCEDURE: Transurethral resection and vaporization of bladder tumor utilizing bipolar system. ATTENDING: Guanaok Bailey MD ANESTHESIA: General. DESCRIPTION OF OPERATION: The patient was brought in the operating room, placed in supine position on the operating room table. Preoperative antibiotics and anesthesia were administered. The patient was then placed in dorsal lithotomy position, prepped and draped in the usual sterile manner. Cystoscopy was performed. A bladder tumor that extended from the medial aspect of the left ureteral orifice, involving the trigone medial to the right ureteral orifice and extending posteriorly to the bladder wall was noted. The bladder tumor appeared as a cauliflower-type growth from the mucosa. The ureteral orifice did not appear to be involved. At this point, resection of the bladder tumor was performed utilizing a bipolar system. A large financial services sales representative section of the bladder tumor was resected and sent for evaluation. At this point, the button element for the bipolar system was utilized, and vaporization of the bladder base with preservation of both ureteral orifices was performed. The area that was involved was greater than 5 cm x 5 cm. No complications were noted. The patient tolerated the procedure very well. The patient was left with a 20-Hebrew catheter to straight drainage. GUANAKO BAILEY M.D. [id number]
--- NOTE | 2018-12-13 13:04 | PATH ---
Surgical Pathology Report Patient Name: MICHAEL GOLDSMITH [facility]. Rec. #: [id number] /Age/Gender: 1950 (Age: 68) / M Account: [id number] Location: [facility] SURGICAL Taken: 12/12/2018 Received: 12/12/2018 Reported: 12/13/2018 Physicians: Valentín Bueno Specimen(s) Received BLADDER TUMOR Clinical History Bladder tumor Final Diagnosis BLADDER TUMOR, EXCISION: LOW GRADE PAPILLARY UROTHELIAL CARCINOMA, NONINVASIVE. NO MUSCULARIS PROPRIA PRESENT FOR EVALUATION. This case was discussed with Dr. Bueno on December 13, 2018. Electronically Signed Laisha Severino M.D. Gross Description Received in formalin labeled "bladder tumor," are 5 carpenter soft tissue fragments ranging from 0.2-0.7 cm in greatest dimension. The specimens are submitted in toto in one cassette. /12/12/201812/12/2018
== END 2018-12-12 14:15 | disposition home or self-care (01) ==
LOC: JASU-SURG 07:13
PROVIDERS: ATTEND Urology
PROC: 0T5B8ZZ Destruction of Bladder, Via Natural or Artificial Opening Endoscopic (ICD-10-PCS; principal; 2018-12-12 09:00)
DX: C67.9 Malignant neoplasm of bladder, unspecified (principal)
CPT/HCPCS: 82962; 88305-TC; 94760